=== PATIENT | female | born 2005 | race Caucasian/White ===

== ENCOUNTER 2024-06-17 23:25 | Day surgery (SDC) | payer OTHER ==
[2024-06-18 00:38] VITALS: BMI 28.7
== END 2024-06-18 01:04 | disposition home or self-care (01) ==
LOC: CSHLD/OP 23:25
PROVIDERS: ATTEND Family Medicine
DX: O47.1 False labor at or after 37 completed weeks of gestation (principal); Z79.899 Other long term (current) drug therapy; Z88.0 Allergy status to penicillin; Z3A.38 38 weeks gestation of pregnancy